=== PATIENT | female | born 1985 | race Caucasian/White ===

== ENCOUNTER 2017-01-03 17:40 | Emergency (ER) ==
--- NOTE | 2017-01-03 18:29 | PROVIDER DOCUMENTATION ---
[facility]-EE General - General Source: patient - History of Present Illness-EENT General EENT Location: reports: nose Quality of Pain: reports: aching Severity: reports: mild Onset/Duration: reports: this morning Timing: reports: still present Locality of Occurance: Home Similar Symptoms Previously?: No Recently seen or treated by another doctor?: No - Nose Nose Problem Symptoms: nosebleed <Melina Marrero - Last Filed: 01/03/17 18:23> <Cathie Renae - Last Filed: 01/03/17 22:09> - General Chief Complaint: Nose Bleed Stated Complaint: NOSE BLEED Time Seen by Provider: 01/03/17 18:23 Allergies/Adverse Reactions: Patient Allergies Allergy/AdvReac Type Severity Reaction Status Date / Time ibuprofen Allergy RASH Verified 04/03/15 07:54 Home Medications: Home Medication List Medication Instructions Recorded Confirmed Last Taken Type Zolpidem [Ambien] 10 mg PO QHS PRN 02/21/15 05/10/15 03/28/15 History Vit No.124/Iron/FA 1 each PO DAILY 04/03/15 05/10/15 04/26/15 05:30 History [ Vitamin Tablet] Buprenorphine/Naloxone S.l. 1 each SL Q12H #0 tablet 05/12/15 Unknown Rx [Suboxone 8 mg/2 mg] Amoxicillin/Pot Clavulanate 875 mg PO BID #14 tablet 01/03/17 Unknown Rx [Augmentin] Pseudoephedrine HCl [Sudafed 12 120 mg PO BID #14 tablet.er 01/03/17 Unknown Rx Hour] - History of Present Illness-[facility] [place] General Nature of Presenting Problem: 31 year old F presents to the ED with a cc of a nose bleed with an onset of this morning. PT states that it has been minimal intermittent out of the right nostril. PT states this afternoon around 1500 it began gushing blood out of bilateral nostrils. PT states that recently she has had a cough, congestion, and sore throat. PT denies trauma. (Melina Marrero) Review of Systems - Adult - REVIEW OF SYSTEMS - ADULT Constitutional: denies: chills, fever Eyes: reports: no symptoms reported Ears, Nose, Mouth & Throat: reports: epistaxis, sinus problem, throat pain Cardiovascular: reports: no symptoms reported Respiratory: reports: cough. denies: shortness of breath Gastrointestinal: reports: no symptoms reported Genitourinary: reports: no symptoms reported Musculoskeletal: reports: no symptoms reported Integumentary: reports: no symptoms reported Neurological: reports: no symptoms reported Psychiatric: reports: no symptoms reported Endocrine: reports: no symptoms reported Hematologic/Lymphatic: reports: no symptoms reported Allergic/Immunologic: reports: no symptoms reported All Other Systems: Reviewed and Negative <Melina Marrero - Last Filed: 01/03/17 18:23> Past History - Adult - PAST MEDICAL HISTORY-ADULT Review of Records: reports: Nursing Assessment Review, Medications Reviewed Major Childhood Illnesses: reports: denies history Cardiovascular: reports: denies history Respiratory: reports: denies history Gastrointestinal: reports: denies history Obstetrical/Gynecological: reports: denies history Genitourinary: reports: denies history Musculoskeletal: reports: denies history Neurological: reports: denies history Psychiatric: reports: anxiety, bipolar Endocrine/Immune: reports: denies history Other Conditions: reports: denies history - PRIOR SURGERIES/PROCEDURES Surgical/Procedure History: reports: - PRIOR HOSPITALIZATIONS Prior Hospitalizations: reports: none - IMMUNIZATION STATUS Childhood Immunizations: See Nurse Assessment Flu Vaccine: See Nurse Assessment - FAMILY HISTORY Family History: reviewed, not pertinent - SOCIAL HISTORY Smoking: cigarettes, less than 1 pack/day Provider spent 3-5 mins advising pt. on dangers of tobacco.: Discussed manners to quit use, and f/u contacts for add'l counseling. Substance Use: none/never Alcohol Use Frequency: never <Melina Marrero - Last Filed: 01/03/17 18:23> Physical Exam- EENT - Physical Exam EENT Initial Vital Signs Reviewed: Yes General Appearance: appears well, alert, no apparent distress Nasal Exam: other (clot to right nostril, no active bleeding to bilateral nostrils, nasal mucosa inflammed to right nostril.) Respiratory: chest non-tender, lungs clear, normal breath sounds Cardiovascular: normal peripheral pulses, regular rate, rhythm, no edema Integumentary: normal color, normal turgor, warm/dry Psych/Mental Status: normal mood/affect, normal thought content, normal thought process, oriented x 3 <Melina Marrero - Last Filed: 01/03/17 18:23> Progress - REASSESSMENT Reassessment #1 Time Reassessed: 22:08 (Dr. Hernández saw the patient. Bleeding has resolved. Nasal mucosa inflammed, otherwise no abnormality. Recommends discharge home with treatment for sinusitis.) Status: improving <Cathie Renae - Last Filed: 01/03/17 22:09> Departure <Melina Marrero - Last Filed: 01/03/17 18:23> - Departure Time of Disposition Order: 22:05 Certified Medical Emergency: Emergent <Cathie Renae - Last Filed: 01/03/17 22:09> - Departure DIAGNOSIS: Nosebleed, Sinusitis Disposition: HOME 01 Condition: Good Additional Instructions: ED Follow Up Instructions: You have been treated by a care provider in the Emergency Department. These instructions are being provided to you so you can have an understanding of how to care for yourself upon discharge. Upon discharge from the Emergency Department, you are responsible for making arrangements for follow-up care by a physician of your choice. Take all prescribed medications as directed. Return to the Emergency Department immediately for any new or worsening symptoms. You may call the Physician Referral phone number at [phone] to obtain a list of Physicians who are taking new patients. Prescriptions: Amoxicillin/Pot Clavulanate [Augmentin] 875 mg PO BID #14 tablet Pseudoephedrine HCl [Sudafed 12 Hour] 120 mg PO BID #14 tablet.er Attestation - Scribe Verification/Attestation Scribe:: Melina Marrero Acting as Scribe for:: Cathie Renae Scribe documention review:: This chart was documented by a scribe and accurately reflects the service the provider performed and the decisions made by the provider. <Melina Marrero - Last Filed: 01/03/17 18:23> - Physician/ GAL Attestation Patient care was provided by Advanced Practice Provider:: Yes Advanced Practice Provider:: Cathie Renae Advanced Practice Provider documentation review:: The Mid-level provider documentation, treatment plan and medical decision making was reviewed by the physician who agrees with all treatment and medical decision making by the [facility]. The physician spent face to face time with patient:: Yes <Cathie Renae - Last Filed: 01/03/17 22:09> Physician Attestation - Physician Attestation I, the provider, attest to the following statement:: Cathie Renae Physician documentation Attestation:: This documentation recorded by the scribe accurately reflects the service I personally performed and the decisions made by me. <Melina Marrero - Last Filed: 01/03/17 18:23>
[2017-01-03 18:49] LABS: MANUAL DIFF NEEDED? NO
[2017-01-03 18:51] LABS: BASO% 0.3 % (0.0-0.8); EOS# 0.16 X1000 (0.0-0.7); EOS% 2.6 % (0.0-10.0); HEMATOCRIT 36.2 % (37.0-47.0); HEMOGLOBIN 12.1 g/dL (12.0-16.0); IMM GRAN# 0.01 X1000 (0.0-0.04); IMM GRAN% 0.2 % (0.0-0.5); LYMPH# 2.15 X1000 (1.2-3.4); LYMPH% 35.1 % (20.5-51.1); MCH 29.2 PG (27-31); MCHC 33.4 g/dL (33-37); MCV 87.2 FL (81-99); MONO# 0.48 X1000 (0.11-0.59); MONO% 7.8 % (1.7-9.3); MPV 9.5 FL (7.4-10.4); PLT 169 X1000 (130-400); RBC 4.15 XMIL (4.2-5.4)
[2017-01-03 19:28] LABS: INR 1.03 (0.86-1.15); PROTIME 13.8 Seconds (12.1-15.5)
[2017-01-03 19:29] LABS: PTT PL 33.8 Seconds (22.6-43.9)
[2017-01-03] MEDS ORDERED: NEO-SYNEPHRINE 1% NASAL SPRAY NAS ONE (20:08)
[2017-01-03] MEDS ORDERED: ZOFRAN ODT PO ONE (20:48)
[2017-01-03] MEDS ORDERED: MORPHINE IM ONE (20:48)
[2017-01-03 22:06] VITALS: BP 120/81
[2017-01-03] MEDS ORDERED: AUGMENTIN ONE (22:38)
== END 2017-01-03 22:43 | disposition home or self-care (01) ==
LOC: P.ED 17:40
DX: R04.0 Epistaxis (principal); J32.9 Chronic sinusitis, unspecified; J02.9 Acute pharyngitis, unspecified; R05 Cough; F41.9 Anxiety disorder, unspecified; F31.9 Bipolar disorder, unspecified; F17.210 Nicotine dependence, cigarettes, uncomplicated; Z71.6 Tobacco abuse counseling; Z79.899 Other long term (current) drug therapy
CPT/HCPCS: 85025; 85610; 85730; 99283